=== PATIENT | female | born 1995 | race Hispanic/Latino ===

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

== ENCOUNTER 2017-10-31 22:21 | Emergency (ER) | payer OTHER ==
[~2017-10-31] VITALS: Ht 152.4 cm; Wt 56.7 kg
[~2017-10-31 22:21] MED LIST changes: +FLEXERIL10 MG PO; +NAPROSYN500 MG PO
[2017-11-01 00:03] LABS: HEMATOCRIT 37.6 % (36.0-46.0); MCH 29.9 PG (29.0-34.0); MCHC 37.2 G/DL (30.0-36.0); MCV 80.3 FL (83-99); PLATELET COUNT 303 K/uL (156-360); RBC DIS.WIDTH-CV 11.9 % (11.8-14.6); RBC DIS.WIDTH-SD 34.6 % (39-53); RED BLOOD COUNT 4.68 M/uL (3.80-5.20); WHITE BLOOD COUNT 11.3 K/uL (4.1-10.2)
[2017-11-01 00:14] LABS: CHLORIDE 108 mEq/L (99-109); POTASSIUM 3.8 mEq/L (3.7-5.4); SODIUM 140 mEq/L (136-147)
[2017-11-01 00:16] LABS: GLUCOSE 100 mg/dL (70-99)
[2017-11-01 00:20] LABS: CREATININE 0.9 mg/dL (0.6-1.3); GFR ESTIMATE (CALCULATED) > 59 mL/min/
[2017-11-01 00:21] LABS: UREA NITROGEN (BUN) 12 mg/dL (9-23)
[2017-11-01 00:28] LABS: QUANTITATIVE HCG < 4.0 MIU/ML
[2017-11-01 00:43] VITALS: BP 127/79
== END 2017-11-01 00:45 | disposition home or self-care (01) ==
LOC: EME 22:21
PROVIDERS: Emergency Medicine
DX: R51 Headache (principal); R11.0 Nausea; R42 Dizziness and giddiness
CPT/HCPCS: 80048; 84702; 85027; 99281; 99285; J0780; J2765